=== PATIENT | male | born 1995 | race Caucasian/White ===

== ENCOUNTER 2020-11-11 23:15 | Emergency (ER) | payer MEDICAID ==
[~2020-11-11] VITALS: Ht 172.7 cm; Wt 115.7 kg
[2020-11-11 23:30] VITALS: BP 161/90
--- NOTE | 2020-11-11 23:33 | NUR ---
TO LOBBY A/W BED AMBULATORY
--- NOTE | 2020-11-12 01:47 | NUR ---
Patient assessment completed by TIERA, no nursing interventions required at this time.
[2020-11-12 01:55] VITALS: BP 161/90
--- NOTE | 2020-11-12 01:55 | NUR ---
Patient discharged with v/s stable. Written and verbal after care instructions given and explained. Patient verbalized understanding. Ambulatory with steady gait. All questions addressed prior to discharge. Advised to follow up with PMD.
== END 2020-11-12 01:55 | disposition home or self-care (01) ==
LOC: MED 23:15
DX: T14.8XXA Other injury of unspecified body region, initial encounter (principal); X58.XXXA Exposure to other specified factors, initial encounter; Y93.89 Activity, other specified; Y92.89 Other specified places as the place of occurrence of the external cause; Y99.8 Other external cause status
CPT/HCPCS: 99282